=== PATIENT | female | born 1970 | race Caucasian/White ===

== ENCOUNTER → 2017-11-22 09:40 | Outpatient (POV) | payer OTHER, SELFPAY | PROVIDERS: Visit Provider Dermatology | DX: Z00.00 Encounter for general adult medical examination without abnormal findings (principal) ==

== ENCOUNTER → 2018-01-25 07:12 | Outpatient (CLI) | payer OTHER, SELFPAY ==
--- NOTE | 2018-01-25 07:21 | CT_ITS ---
CT abdomen pelvis wo con CLINICAL INDICATION: Right flank pain for 3 days, history of kidney stone ITS.REASON: KIDNEY STONE ORDERING PHYSICIAN: Oneil Nolen MD PATIENT AGE: 47 years TECHNIQUE: Axial images obtained with sagittal and coronal reformats. All CT scans at the facility use one or more dose reduction, viz: automated exposure control; ma/kV adjustment per patient size (including targeted exams where dose is matched to indication; i.e. head); or iterative reconstruction technique. PROCEDURE: Oral Contrast: None IV Contrast: None . FINDINGS: No acute finding in the lung bases. The liver, gallbladder, spleen, adrenal glands, and pancreas are unremarkable. No obstructing renal or ureteral calculi are evident. There is however mild ectasia the right renal collecting system and right ureter which could be related to recently passed stone. No stones evident within the urinary bladder. No evidence of intestinal obstruction, free air, appendicitis, or diverticulitis. There are few small lymph nodes in the mesentery's nonspecific. There is increased soft tissue density in the left adnexa consistent with enlarged ovary measuring 4.6 x 4.4 cm. This does not appear cystic. Pelvic ultrasound is suggested for further evaluation. The uterus is somewhat enlarged with lobularity along the left aspect anteriorly suggesting fibroid involvement. The left adnexal soft tissue density could also be related to an exophytic fibroid. Cannot exclude solid ovarian lesion therefore, ultrasound is suggested. No acute bony anomalies. Degenerative changes are present in the lumbar spine. IMPRESSION: 1. No obstructing ureteral calculi. 2. Mild ectasia of the right renal collecting system and ureter which may be due to recently passed stone. 3. Enlarged uterus with lobular soft tissue component along the left anterior lateral aspect consistent with fibroid involvement. 4. 4.6 cm soft tissue lesion in the left adnexa which could be related to an exophytic fibroid or ovarian mass. Recommend pelvic ultrasound for further evaluation
== END ==
PROVIDERS: Family Provider Family Medicine; PCP Family Medicine; Visit Provider Family Medicine
DX: N20.0 Calculus of kidney (principal)
CPT/HCPCS: 74176

== ENCOUNTER → 2018-02-01 14:07 | Outpatient (CLI) | payer OTHER, SELFPAY ==
--- NOTE | 2018-02-01 14:15 | US_ITS ---
US transvaginal HISTORY: Left ovarian lesion ITS.REASON: SOFT TISSUE LESION ORDERING PHYSICIAN: Oneil Nolen MD PATIENT AGE: Pelvic comparison is made to previous CT scan of 01/25/2018 an older ultrasound of 02/05/2017. FINDINGS: Uterus measures 9 x 5 x 6.4 cm with a combined endometrial thickness of 3 mm. There are numerous fibroids involving the uterus. Fibroid A colon 2.4 x 2.2 cm the fundus anteriorly Fibroid B: 2.7 x 2.3 cm in the posterior aspect of the body of the uterus. Fibroid C: 1.1 x 0.6 cm and the body posteriorly Fibroid D: 2.3 x 1.5 cm cm in the body inferiorly and posteriorly Fibroid D: 3.3 x 2.6 cm inferior aspect of the body the uterus posteriorly There is a 3 x 2.4 similar exophytic isoechogenicity projecting off the posterior and left aspect of the uterus which was initially felt to represent the left ovary is likely due to an exophytic fibroid. However, upon further inspection there was an additional 4.8 x 3.9 cm area of isoechogenicity in the left adnexa which was felt to represent the left ovary and had a similar appearance when compared to 02/05/2017. The right ovary has an unremarkable appearance at 1.8 x 1.2 cm. No cul-de-sac fluid evident. IMPRESSION: 1. Enlarged uterus with multiple fibroids as described above. 2. 4.8 x 3.9 cm area of isoechogenicity in the left adnexa which may be due to enlarged ovary which would correspond to the density noted on the CT scan. According to the previous ultrasound of 02/05/2017 there was reported to be a enlarged ovary on prior CT scan. That study is not available at this institution. If that study is available then would be beneficial to compare to that exam to the recent CT scan at this institution. Cannot exclude the possibility of neoplastic process in the left adnexa. Follow-up is recommended. If that exam is not available then MRI of the pelvis without and with contrast may be of further value.
== END ==
PROVIDERS: Family Provider Family Medicine; PCP Family Medicine; Visit Provider Family Medicine
DX: M79.9 Soft tissue disorder, unspecified (principal)
CPT/HCPCS: 76830

== ENCOUNTER → 2018-04-05 09:42 | Outpatient (CLI) | payer OTHER, SELFPAY ==
[2018-04-05 11:20] LABS: Free T4 (Free Thyroxine) 0.97 ng/dl (0.76-1.46); Thyroid Stimulating Hormone 1.78 uIU/ml (0.358-3.740)
== END ==
PROVIDERS: Visit Provider Physician Assistant
DX: E03.9 Hypothyroidism, unspecified (principal)
CPT/HCPCS: 36415; 84439; 84443

== ENCOUNTER → 2018-08-14 16:30 | Outpatient (CLI) | payer OTHER, SELFPAY ==
[2018-08-14 18:30] LABS: Free T4 (Free Thyroxine) 0.94 ng/dl (0.76-1.46); Thyroid Stimulating Hormone 1.61 uIU/ml (0.358-3.740)
== END ==
PROVIDERS: Visit Provider Family Medicine
DX: E03.9 Hypothyroidism, unspecified (principal)
CPT/HCPCS: 36415; 84439; 84443

== ENCOUNTER → 2019-08-28 10:48 | Outpatient (CLI) | payer OTHER, SELFPAY ==
--- NOTE | 2019-08-28 10:51 | US_ITS ---
PROCEDURE: US TRANSVAGINAL CLINICAL INDICATION: US T/V-Fibroids HMB Heavy cycles, history of fibroids COMPARISON: TRANVAG US transvaginal from 02/01/2018 FINDINGS: The uterus is enlarged with numerous fibroids. UTERUS: 10 cm x 8 cmx 6 cm with a combined endometrial thickness of 7 mm. There are at least 5 suspected fibroids the largest at 4.6 x 4.9 cm with the 2nd largest at 4.7 x 4.3 cm. Previously the largest fibroid was 3.3 cm. LEFT OVARY: 3 cmx3 cmx2.7 cm with a volume of 12.8 ml. RIGHT OVARY: 3 cmx3 cmx2 cm with a volume of 8.5 ml. 2.6 there is a 2.6 cm right ovarian cyst No cul-de-sac fluid. IMPRESSION: Enlarged uterus with multiple fibroids. These have slightly increased in size compared to the previous exam Dictated by: Tim Bruner MD 08/28/2019 18:04 Electronically signed by Tim Bruner MD in [facility] 08/28/2019 18:04
== END ==
PROVIDERS: PCP Family Medicine; Visit Provider Obstetrics & Gynecology
DX: D21.9 Benign neoplasm of connective and other soft tissue, unspecified (principal); N92.0 Excessive and frequent menstruation with regular cycle
CPT/HCPCS: 76830

== ENCOUNTER → 2019-09-19 08:38 | Outpatient (CLI) | payer OTHER, SELFPAY ==
--- NOTE | 2019-09-19 08:53 | US_ITS ---
PROCEDURE: US ABDOMEN LIMITED CLINICAL INDICATION: RUQ PAIN COMPARISON: No exams were available for comparison FINDINGS: PANCREAS: Unremarkable. No obvious mass or abnormal fluid collection. No ductal dilatation LIVER: No focal liver lesions demonstrated. Homogeneous echogenicity. No intrahepatic biliary ductal dilatation evident. There is appropriate direction of blood flow within a non dilated portal vein RIGHT KIDNEY: Unremarkable. Normal size and echogenicity. No hydronephrosis GALLBLADDER: There are at least 2 punctate echogenic nonshadowing foci dense the wall of the gallbladder. These likely measure on the 2 millimeters in maximal diameter. There is no gallbladder wall thickening or pericholecystic fluid. Common bile duct is normal measuring 3.5 millimeters. IMPRESSION: There are either 2 punctate gallbladder polyps or adherent nonshadowing calculi. There is no acute inflammation. Dictated by: Clifford Bhatia 09/19/2019 11:14 Electronically signed by Clifford Bhatia in [facility] 09/19/2019 11:14
[2019-09-19 08:54] LABS: Basophils # 0.1 K/mm3 (0-0.2); Eosinophils # 0.2 K/mm3 (0.0-0.4); Hematocrit 43.9 % (37.0-47.0); Hemoglobin 14.8 g/dL (12.2-16.2); Lymphocytes # 2.3 K/mm3 (0.7-4.5); Lymphocytes % 29.9 % (10-50); Mean Corpuscular HGB Conc 33.8 g/dL (31.8-35.4); Mean Corpuscular Hemoglobin 30.5 pg (27.0-31.2); Mean Corpuscular Volume 90.4 fl (81-99); Mean Platelet Volume 7.2 fl (7.4-10.4); Monocytes # 0.3 K/mm3 (0.1-1.0); Neutrophils # 4.8 K/mm3 (1.8-7.8); Neutrophils % 63.2 % (37.0-80.0); Platelet Count 386 K/mm3 (142-424); Red Blood Count 4.86 M/mm3 (4.20-5.40); Red Cell Distribution Width 12.7 % (11.5-17.5); White Blood Count 7.6 K/mm3 (4.8-10.8)
[2019-09-19 10:08] LABS: Alanine Aminotransferase 16 U/L (12-78); Albumin Level 3.4 gm/dL (3.4-5.0); Albumin/Globulin Ratio 0.9 (1.1-1.8); Alkaline Phosphatase 81 U/L (46-116); Anion Gap 14.5 mEq/L (5-15); Aspartate Amino Transferase 14 U/L (15-37); Bilirubin,Total 0.4 mg/dL (0.2-1.0); Blood Urea Nitrogen 14 mg/dL (7-18); Calcium 8.7 mg/dL (8.5-10.1); Carbon Dioxide 27 mmol/L (21.0-32.0); Chloride 103 mmol/L (98-107); Chol/HDL Ratio 2.9 (1-3.5); Cholesterol 214 mg/dL (140-200); Creatinine,Serum 0.84 mg/dL (0.55-1.02); Estimated Glomerular Filt Rate 73 ml/min (>60); Free T4 (Free Thyroxine) 1.14 ng/dl (0.76-1.46); GFR (African American) 88 ML/MIN (>60); Globulin 3.6 gm/dl (1.3-3.2); Glucose 86 mg/dL (74-106); HDL Cholesterol 75 mg/dL (29-89); LDL Cholesterol 116 mg/dL (0-130); Potassium 4.5 mmoL/L (3.5-5.1); Sodium 140 mmol/L (136-145); Thyroid Stimulating Hormone 1.85 uIU/ml (0.358-3.740); Triglycerides 114 mg/dL (30-200); VLDL Cholesterol 23 mg/dL (0-40)
== END ==
PROVIDERS: PCP Family Medicine; Visit Provider Physician Assistant
DX: R10.11 Right upper quadrant pain (principal); E03.9 Hypothyroidism, unspecified; Z13.220 Encounter for screening for lipoid disorders
CPT/HCPCS: 36415; 76705; 80053; 80061; 84439; 84443; 85025